=== PATIENT | male | born 1980 | race Caucasian/White ===

== ENCOUNTER 2019-11-12 11:25 | Emergency (ER) | payer MEDICAID ==
[~2019-11-12] VITALS: Ht 185.4 cm; Wt 122.5 kg
[2019-11-12 11:29] VITALS: Ht 185.4 cm; Wt 122.5 kg
[2019-11-12 13:16] VITALS: BP 140/87
== END 2019-11-12 13:16 | disposition home or self-care (01) ==
LOC: ED 11:25
DX: S61.411A Laceration without foreign body of right hand, initial encounter (principal); W26.8XXA Contact with other sharp object(s), not elsewhere classified, initial encounter; Y93.89 Activity, other specified; Y92.89 Other specified places as the place of occurrence of the external cause; Y99.8 Other external cause status
CPT/HCPCS: J2001

== ENCOUNTER 2019-11-15 11:03 | Emergency (ER) | payer MEDICAID ==
[~2019-11-15] VITALS: Ht 188 cm; Wt 122.9 kg
[2019-11-15 11:15] VITALS: Ht 188 cm; Wt 122.9 kg
[2019-11-15 12:46] VITALS: BP 159/98
== END 2019-11-15 12:46 | disposition home or self-care (01) ==
LOC: ED 11:03
DX: S61.011D Laceration without foreign body of right thumb without damage to nail, subsequent encounter (principal); F17.210 Nicotine dependence, cigarettes, uncomplicated; F15.10 Other stimulant abuse, uncomplicated; E66.9 Obesity, unspecified; Z68.34 Body mass index [BMI] 34.0-34.9, adult; W22.8XXD Striking against or struck by other objects, subsequent encounter
CPT/HCPCS: 99406